=== PATIENT | female | born 1965 | race Two or more races ===

== ENCOUNTER 2018-11-18 11:31 | Outpatient (CLI) | payer OTHER | END 2018-11-18 12:13 | disposition home or self-care (01) | LOC: SONOGRAMA 11:31 | DX: R10.13 Epigastric pain (principal) ==

== ENCOUNTER 2019-01-11 07:08 | Outpatient (CLI) | payer OTHER | END 2019-01-11 07:30 | disposition home or self-care (01) | LOC: MRI 07:08 | DX: R10.13 Epigastric pain (principal); K21.9 Gastro-esophageal reflux disease without esophagitis; K57.30 Diverticulosis of large intestine without perforation or abscess without bleeding; R93.3 Abnormal findings on diagnostic imaging of other parts of digestive tract | CPT/HCPCS: 74181 ==

== ENCOUNTER 2019-12-02 13:48 | Outpatient (CLI) | payer OTHER | END 2019-12-02 13:58 | disposition home or self-care (01) | LOC: MAMO-SONO 13:48 | DX: Z12.31 Encounter for screening mammogram for malignant neoplasm of breast (principal); Z87.898 Personal history of other specified conditions ==

== ENCOUNTER 2021-07-18 10:05 | Outpatient (CLI) | payer OTHER | END 2021-07-18 10:32 | disposition home or self-care (01) | LOC: NUCLEAR 10:05 | PROVIDERS: ATTEND Internal Medicine Hematology & Oncology | DX: I82.621 Acute embolism and thrombosis of deep veins of right upper extremity (principal); I87.2 Venous insufficiency (chronic) (peripheral) ==

== ENCOUNTER 2021-08-09 13:05 | Outpatient (CLI) | payer OTHER | END 2021-08-09 13:25 | disposition home or self-care (01) | LOC: PPH VACUNA 13:05 | PROVIDERS: ATTEND Emergency Medicine Pediatric Emergency Medicine | DX: Z23 Encounter for immunization (principal) ==

== ENCOUNTER 2022-07-18 10:00 | Outpatient (CLI) | payer OTHER | END 2022-07-18 10:05 | disposition home or self-care (01) | LOC: NUCLEAR 10:00 | PROVIDERS: ATTEND Internal Medicine Cardiovascular Disease | DX: I27.20 Pulmonary hypertension, unspecified (principal) ==

== ENCOUNTER 2022-07-31 09:18 | Outpatient (CLI) | payer OTHER | END 2022-07-31 09:21 | disposition home or self-care (01) | LOC: TOM 09:18 | PROVIDERS: ATTEND Internal Medicine Hematology & Oncology | DX: R91.1 Solitary pulmonary nodule (principal); D47.02 Systemic mastocytosis; C00-D49 Neoplasms ==